=== PATIENT | male | born 1945 | race Native Hawaiian/Other Pacific Islander ===

== ENCOUNTER 2017-05-08 08:30 | Outpatient (CLI) | payer OTHER ==
[2017-05-08 10:06] LABS: PLATELET COUNT 175 K/uL (142-355)
[2017-05-08 10:10] LABS: POTASSIUM 4.2 mmol/L (3.6-5.2)
== END 2017-05-08 09:30 | disposition home or self-care (01) ==
LOC: LABW 08:30
PROVIDERS: Internal Medicine Nephrology
DX: E87.5 Hyperkalemia (principal); I12.9 Hypertensive chronic kidney disease with stage 1 through stage 4 chronic kidney disease, or unspecified chronic kidney disease; N18.3 Chronic kidney disease, stage 3 (moderate); Q61.8 Other cystic kidney diseases; E55.9 Vitamin D deficiency, unspecified; R79.89 Other specified abnormal findings of blood chemistry
CPT/HCPCS: 36415; 80053; 81002; 82306; 82570; 82607; 82728; 82746; 83516; 83540; 83550; 83970; 84100; 84155; 84165; 84166; 85027; 85044; 86039; 86160; 86255; 86430; 86704; 86707; 87350

== ENCOUNTER 2017-08-14 07:46 | Outpatient (CLI) | payer OTHER ==
[2017-08-14 08:22] LABS: PLATELET COUNT 216 K/uL (142-355)
[2017-08-14 08:29] LABS: POTASSIUM 4.4 mmol/L (3.6-5.2)
== END 2017-08-14 22:54 | disposition home or self-care (01) ==
LOC: LABW 07:46
PROVIDERS: Internal Medicine Nephrology
DX: I12.9 Hypertensive chronic kidney disease with stage 1 through stage 4 chronic kidney disease, or unspecified chronic kidney disease (principal); N18.3 Chronic kidney disease, stage 3 (moderate); E55.9 Vitamin D deficiency, unspecified; E87.5 Hyperkalemia; Q61.8 Other cystic kidney diseases; R79.89 Other specified abnormal findings of blood chemistry
CPT/HCPCS: 36415; 80053; 80061; 81000; 82306; 82570; 82607; 82728; 82746; 83036; 83970; 84100; 84155; 84439; 84443; 85027; 85044

== ENCOUNTER 2017-11-24 08:18 | Outpatient (CLI) | payer OTHER ==
[2017-11-24 09:02] LABS: PLATELET COUNT 218 K/uL (142-355)
[2017-11-24 10:15] LABS: POTASSIUM 4.3 mmol/L (3.6-5.2)
== END 2017-11-24 19:41 | disposition home or self-care (01) ==
LOC: LABW 08:18
PROVIDERS: Internal Medicine Nephrology
DX: I12.9 Hypertensive chronic kidney disease with stage 1 through stage 4 chronic kidney disease, or unspecified chronic kidney disease (principal); N18.3 Chronic kidney disease, stage 3 (moderate); E55.9 Vitamin D deficiency, unspecified; E87.5 Hyperkalemia; R73.9 Hyperglycemia, unspecified; R31.29 Other microscopic hematuria; D51.8 Other vitamin B12 deficiency anemias; D64.89 Other specified anemias
CPT/HCPCS: 36415; 80053; 80061; 81000; 82306; 82570; 82607; 82728; 82746; 83036; 83970; 84100; 84155; 84439; 84443; 85027; 85044

== ENCOUNTER 2018-02-26 07:38 | Outpatient (CLI) | payer OTHER ==
[2018-02-26 08:02] LABS: PLATELET COUNT 206 K/uL (142-355)
[2018-02-26 08:26] LABS: POTASSIUM 4.5 mmol/L (3.6-5.2)
== END 2018-02-26 20:31 | disposition home or self-care (01) ==
LOC: LABW 07:38
PROVIDERS: Internal Medicine Nephrology
DX: N18.3 Chronic kidney disease, stage 3 (moderate) (principal); I10 Essential (primary) hypertension; Q61.9 Cystic kidney disease, unspecified; E55.9 Vitamin D deficiency, unspecified; E87.5 Hyperkalemia; R73.9 Hyperglycemia, unspecified; R31.29 Other microscopic hematuria; E53.9 Vitamin B deficiency, unspecified; D64.9 Anemia, unspecified
CPT/HCPCS: 36415; 80053; 80061; 81000; 82306; 82570; 82607; 82728; 82746; 83036; 83970; 84100; 84155; 84439; 84443; 85027; 85044

== ENCOUNTER 2020-06-12 09:09 | Outpatient (CLI) | payer OTHER ==
[2020-06-12 09:44] LABS: PLATELET COUNT 212 K/uL (142-355)
[2020-06-12 10:00] LABS: POTASSIUM 4.7 mmol/L (3.6-5.2)
== END 2020-06-12 19:21 | disposition home or self-care (01) ==
LOC: LABW 09:09
PROVIDERS: ATTEND Internal Medicine Nephrology
DX: I12.9 Hypertensive chronic kidney disease with stage 1 through stage 4 chronic kidney disease, or unspecified chronic kidney disease (principal); N18.32 Chronic kidney disease, stage 3b; E87.5 Hyperkalemia; E55.9 Vitamin D deficiency, unspecified; Z79.899 Other long term (current) drug therapy
CPT/HCPCS: 36415; 80053; 80061; 82570; 83036; 84155; 84439; 84443; 85027